=== PATIENT | male | born 2000 | race African-American/Black ===

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

== ENCOUNTER 2023-12-15 08:17 | Emergency (ER) | payer OTHER ==
[~2023-12-15] VITALS: Ht 188 cm; Wt 77.3 kg
[2023-12-15 08:22] VITALS: TEMP 98.3
[2023-12-15] MEDS: IBUPROFEN 600 MG TABLET PO ONE (08:32)
[2023-12-15] MEDS ORDERED: ACET-66 PO (09:33)
[2023-12-15] MEDS ORDERED: IBUP-1554 PO (09:33)
[2023-12-15 09:36] VITALS: BP 119/53; PULSE 67; RESP 18; O2SAT 99
== END 2023-12-15 09:41 | disposition home or self-care (01) ==
LOC: EMS 08:17
DX: S90.121A Contusion of right lesser toe(s) without damage to nail, initial encounter (principal); X58.XXXA Exposure to other specified factors, initial encounter; Y93.89 Activity, other specified; Y92.89 Other specified places as the place of occurrence of the external cause; Y99.8 Other external cause status
CPT/HCPCS: 29550; 99283